=== PATIENT | male | born 1985 | race Two or more races ===

== ENCOUNTER 2020-08-29 15:54 | Emergency (ER) | payer OTHER, SELFPAY ==
[2020-08-29 16:37] VITALS: BP 148/98; PULSE 95; RESP 15; TEMP 36.7; O2SAT 98; BMI 45.1
--- NOTE | 2020-08-29 18:31 | ED_ITS ---
HPI - Back Pain/Injury General Chief Complaint: Back Pain/Injury Stated Complaint: lower back pain Time Seen by Provider: 08/29/20 18:14 Source: patient Mode of arrival: ambulatory History of Present Illness HPI Narrative: 35-year-old male with a past medical history of diabetes presenting to the ED complaining of low back pain since yesterday. 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 Denies known trauma/injury, falls. Denies radiation of pain, numbness, tingling, weakness, urinary incontinence/retention MD elicited complaint: back pain Related Data Previous Rx's Medication Instructions Recorded acetaminophen [Tylenol Extra 500 mg PO Q6H PRN #20 tab 08/29/20 Strength] cyclobenzaprine 5 mg PO Q8H PRN 5 Days #14 tab 08/29/20 lidocaine [Lidoderm] 1 patch TOPICAL DAILY PRN #30 ea 08/29/20 MDD remove after 12 hours naproxen 500 mg PO BID PRN 10 Days #20 tab 08/29/20 Allergies Allergy/AdvReac Type Severity Reaction Status Date / Time No Known Allergies Allergy Verified 08/29/20 18:07 [No Known Allergies*] Review of Systems 2 Review of Systems: Constitutional: No Fever, No Chills Genitourinary: No Urinary Frequency, No Hematuria, No Urinary Incontinence/retention, No Flank Pain Musculoskeletal: +back pain, No Myalgias, No Joint Swelling Skin: No Skin Lesions, No rash Neuro: No Weakness, No Numbness, No Paresthesias Yes all other systems are r eviewed and are negative [facility] Past Medical History Attestation statement: The following information was validated with the patient. Medical History (Updated 08/29/20 @ 18:38 by LAURA Banks) Diabetes Social History Social History Alcohol intake: never Smoked in Last 30 Days: No Use of substances other than those prescribed or required for medical reasons: No Advance Directives: No Advance Directives Information Provided: No Physical Exam Vital Signs: Vital Signs: Last Vital Signs Temp 98.0 F 08/29/20 16:37 Pulse 95 08/29/20 16:37 Resp 15 08/29/20 16:37 BP 148/98 H 08/29/20 16:37 Pulse Ox 98 08/29/20 16:37 Body Mass Index 45.1 Const: General: cooperative and healthy appearing Orientation/consciousness: patient oriented x3 Limitations: no limitations HENMT: Head: Yes normal to inspection Ears: hearing grossly normal bilaterally General nose exam: Normal external nose present Face and sinus: Yes normal facial exam Eyes: General: appearance normal, both eyes and all related structures EOM: EOMs intact bilaterally Neck: Neck: Yes normal visual inspection Resp: Effort & Inspection: normal respiratory effort : General: Yes no CVA tenderness Back/Spine/Pelvis: Other: No midline cervical/thoracic/lumbar spinous tenderness. No step-offs. + bilateral lower lumbar/buttock MSK tenderness to palpation. Back: no CVA tenderness Skin: Rashes: no rashes Wounds: no wounds Neuro: Other: Ambulating with steady gait. Strength intact throughout. No saddle anesthesia General: patient oriented x3, gait normal, tone normal and moves all extremities Gait exam (Neuro): Normal gait present Motor exam (neuro): 5/5 motor strength present throughout Extrem: General: Yes normal to inspection MDM - Back Pain/Injury MDM Narrative Medical decision making narrative: On exam VSS, NAD, no midline spinous tenderness. MSK tenderness on exam. No red flag symptoms or saddle anesthesia. Likely MSK pain. Low concern for cauda equina/cord compression or fracture Discharge Plan Discharge Clinical Impression: Low back pain Qualifiers: Chronicity: acute Back pain laterality: bilateral Sciatica presence: without sciatica Qualified Code(s): M54.5 - Low back pain Patient Disposition: Home, Self-Care Instructions: Acute Low Back Pain (ED) Additional Instructions: Your pain is likely musculoskeletal Flexeril is a muscle relaxer, take at night as it makes you drowsy, do not drive, drink alcohol, or operate machinery while taking it Naproxen as an anti-inflammatory / pain medication, take with food Lidoderm patches are numbing patches, apply to painful area In addition take Tylenol at home If symptoms persist or worsen, pain becomes unbearable, you developed urinary retention or incontinence, or weakness return to the ED Prescriptions: New acetaminophen [Tylenol Extra Strength] 500 mg tablet 500 mg PO Q6H PRN (Reason: pain or fever) Qty: 20 RF: 0 lidocaine [Lidoderm] 5 % adhesive patch,medicated 1 patch topical DAILY MDD remove after 12 hours PRN (Reason: pain) Qty: 30 RF: 0 naproxen 500 mg tablet 500 mg PO BID PRN (Reason: pain) 10 Days Qty: 20 RF: 0 cyclobenzaprine 5 mg tablet 5 mg PO Q8H PRN (Reason: pain (scale score 7-10)) 5 Days Qty: 14 RF: 0 Referrals: ED Physician,Generic [Emergency Provider] - 2 days
[2020-08-29] MEDS: Cyclobenzaprine HCl 10 MG TABLET PO (18:59)
[2020-08-29] MEDS: Ketorolac Tromethamine 15 MG/ML VIAL IM (19:00)
== END 2020-08-29 19:38 | disposition home or self-care (01) ==
PROVIDERS: Emergency Provider Internal Medicine
DX: M54.5 Low back pain (principal); E11.9 Type 2 diabetes mellitus without complications
CPT/HCPCS: 96372; 99284; J1885

== ENCOUNTER 2020-09-09 09:38 | Outpatient (REF) | payer OTHER, SELFPAY | END 2020-09-09 09:39 | disposition home or self-care (01) | LOC: HO.LAB 09:38 | PROVIDERS: Visit Provider Internal Medicine | DX: Z20.822 Contact with and (suspected) exposure to COVID-19 (principal) | CPT/HCPCS: 36415; C9803; U0003; U0005 ==